=== PATIENT | female | born 1960 | race Caucasian/White ===

== ENCOUNTER 2018-09-30 10:39 | Outpatient (CLI) | payer BC ==
--- NOTE | 2018-09-30 13:43 | ULT ---
SOFT TISSUE ULTRASOUND: History: Area of concern in the right shoulder. Comparison: None. Technique: Targeted sonographic images of the left and right shoulder are performed. FINDINGS: There is a soft tissue echotexture mass, well circumscribed, in the region of concern measuring 1.9 x 0.7 x 2.7 cm. No similar finding on the contralateral side. IMPRESSION: Soft tissue echotexture mass noted in the region of concern in the right shoulder. Pre and post contr ast MRI is recommended. Code T POS: JOE
== END 2018-09-30 10:40 | disposition home or self-care (01) ==
LOC: BICULT 10:39
PROVIDERS: ATTEND Internal Medicine
DX: R22.31 Localized swelling, mass and lump, right upper limb (principal)
CPT/HCPCS: 76999

== ENCOUNTER 2019-06-27 07:42 | Outpatient (CLI) | payer BC ==
--- NOTE | 2019-06-27 08:24 | MMO ---
Bilateral MAMMO Bilat Screen [facility]. CLINICAL HISTORY: Patient is 59 years old and is seen for screening. The patient has no family history of breast cancer. The patient has no personal history of cancer. VIEWS: The views performed were: bilateral craniocaudal with tomosynthesis and bilateral mediolateral oblique with tomosynthesis. FILMS COMPARED: The present examination has been compared to prior imaging studies performed at [facility] on 06/15/2015, 06/20/2016, 06/22/2017 and 06/24/2018. MAMMOGRAM FINDINGS: The breasts are heterogeneously dense, which could obscure a lesion on mammography. There is a single stable benign appearing calcification seen in the right breast. There are no suspicious masses, suspicious calcifications, or new areas of architectural distortion. IMPRESSION: THERE IS NO MAMMOGRAPHIC EVIDENCE OF MALIGNANCY. A ROUTINE FOLLOW-UP MAMMOGRAM IN 1 YEAR IS RECOMMENDED. THE RESULTS OF THIS EXAM WERE SENT TO THE PATIENT. ACR BI-RADS Category 2 - Benign finding MAMMOGRAPHY NOTE: 1. A negative mammogram report should not delay a biopsy if a dominant of clinically suspicious mass is present. 2. Approximately 10% to 15% of breast cancers are not detected by mammography. 3. Adenosis and dense breasts may obscure an underlying neoplasm. Reported by: CORA RODRIGUEZ MD Electonically Signed: [id number]
== END 2019-06-27 07:43 | disposition home or self-care (01) ==
LOC: BICMAMMO 07:42
PROVIDERS: ATTEND Obstetrics & Gynecology
DX: Z12.31 Encounter for screening mammogram for malignant neoplasm of breast (principal)
CPT/HCPCS: 77063; 77067

== ENCOUNTER 2019-12-26 12:54 | Outpatient (CLI) | payer BC ==
--- NOTE | 2019-12-26 14:23 | CT ---
Exam: CT IAC/temporal bones HISTORY: Temporal sclerosis. Bilateral hearing loss for many years. Right worse than left. COMPARISON: None. TECHNIQUE: CT of IACs and temporal bones performed in the axial plane. Coronal reformatted images are submitted for dictation FINDINGS: Brain parenchyma: No masses. No midline shift. Brain volume is age-appropriate. Orbits: Bilateral ocular lenses are appropriately located. Both globes are intact. Preserved retrobul bar fat. Symmetric attenuation of the visualized optic nerves and ocular rectus muscles. Adequate aeration of visualized paranasal sinuses. Minimal left maxillary sinus mucosal disease along with a small polyp. Minimal opacification of the left ethmoid air cells. Right IAC/temporal bone: The internal auditory canal, cochlea, vestibule and semicircular canals have an appropriate appearance and configuration. There is adequate aeration of the middle ear. The manubrium of the malleus has a somewhat irregular appearance. The body of the incus has an abnormal a ppearance. The long arm of the incus and stapedial footplate are unremarkable. Tegmen tympani and tegmen mastoideum appear to be preserved. Adequate aeration of the mastoid air cells. No abnormal hyp odensities in Prussak's space. Scutum is sharp. There does appear to be calcification and retraction of the tympanic membrane. Small defect in the ty mpanic membrane is also noted. External auditory canal is patent. Left IAC/temporal bone: The internal auditory canal, cochlea, vestibule and semicircular canals have an appropriate appearance and configuration. Adequate aeration of the middle ear. Ossicular chain is intact. Stapedial footplate is appropriately located. Tegmen tympani and tegmen mastoideum are pre served. Adequate aeration of mastoid air cells. No abnormal hypodensities in Prussak's space. Scutum is sharp. External auditory canal is patent. Tympanic membrane is slightly thickened and retra cted. Possible associated tympanic membrane calcification. IMPRESSION: 1. Thickening of the right tympanic membrane with associated calcification. Calcification appears to be contiguous with the manubrium of the malleus as well as contiguous with the incus. 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 2. There appears to be a defect in the right tympanic membrane. 3. Mild thickening and minimal calcification left tympanic membrane.
== END 2019-12-26 12:55 | disposition home or self-care (01) ==
LOC: BICCT 12:54
PROVIDERS: ATTEND Otolaryngology Plastic Surgery within the Head & Neck
DX: G93.81 Temporal sclerosis (principal); H73.893 Other specified disorders of tympanic membrane, bilateral
CPT/HCPCS: 70480

== ENCOUNTER 2020-06-28 08:00 | Outpatient (CLI) | payer BC ==
--- NOTE | 2020-06-28 08:50 | MMO ---
Bilateral MAMMO Bilat Screen [facility]. CLINICAL HISTORY: Patient is 60 years old and is seen for screening. The patient has no family history of breast cancer. The patient has no personal history of cancer. VIEWS: The views performed were: bilateral craniocaudal with tomosynthesis and bilateral mediolateral oblique with tomosynthesis. FILMS COMPARED: The present examination has been compared to prior imaging studies performed at [facility] on 06/20/2016, 06/22/2017, 06/24/2018 and 06/27/2019. This study has been interpreted with the assistance of computer-aided detection. MAMMOGRAM FINDINGS: The breasts are heterogeneously dense, which could obscure a lesion on mammography. There are no suspicious masses, suspicious calcifications, or new areas of architectural distortion. IMPRESSION: THERE IS NO MAMMOGRAPHIC EVIDENCE OF MALIGNANCY. A ROUTINE FOLLOW-UP MAMMOGRAM IN 1 YEAR IS RECOMMENDED. THE RESULTS OF THIS EXAM WERE SENT TO THE PATIENT. ACR BI-RADS Category 1 - Negative MAMMOGRAPHY NOTE: 1. A negative mammogram report should not delay a biopsy if a dominant of clinically suspicious mass is present. 2. Approximately 10% to 15% of breast cancers are not detected by mammography. 3. Adenosis and dense breasts may obscure an underlying neoplasm. Reported by: EDUARDO GARCIA MD Electonically Signed: [id number]
== END 2020-06-28 08:01 | disposition home or self-care (01) ==
LOC: BICMAMMO 08:00
PROVIDERS: ATTEND Obstetrics & Gynecology
DX: Z12.31 Encounter for screening mammogram for malignant neoplasm of breast (principal)
CPT/HCPCS: 77063; 77067

== ENCOUNTER 2021-06-29 07:46 | Outpatient (CLI) | payer OTHER | END 2021-06-29 07:47 | disposition home or self-care (01) | LOC: BICMAMMO 07:46 | PROVIDERS: ATTEND Obstetrics & Gynecology | DX: Z12.31 Encounter for screening mammogram for malignant neoplasm of breast (principal) | CPT/HCPCS: 77063; 77067 ==

== ENCOUNTER 2022-06-06 16:13 | Emergency (ER) | payer OTHER, BC ==
[2022-06-06] MEDS ORDERED: Fentanyl 100 MCG/2 ML VIAL ONE (17:02)
== END 2022-06-06 18:28 | disposition home or self-care (01) ==
LOC: ERS 16:13
DX: S00.83XA Contusion of other part of head, initial encounter (principal); S40.011A Contusion of right shoulder, initial encounter; M54.2 Cervicalgia; K21.9 Gastro-esophageal reflux disease without esophagitis; E78.00 Pure hypercholesterolemia, unspecified; V43.52XA Car driver injured in collision with other type car in traffic accident, initial encounter; W22.11XA Striking against or struck by driver side automobile airbag, initial encounter; Z79.899 Other long term (current) drug therapy
CPT/HCPCS: 70450; 71045; 72125; 96374; J3010

== ENCOUNTER 2022-06-30 08:33 | Outpatient (CLI) | payer BC | END 2022-06-30 08:34 | disposition home or self-care (01) | LOC: BICMAMMO 08:33 | PROVIDERS: ATTEND Obstetrics & Gynecology | DX: Z12.31 Encounter for screening mammogram for malignant neoplasm of breast (principal) | CPT/HCPCS: 77063; 77067 ==

== ENCOUNTER 2023-07-23 08:25 | Outpatient (CLI) | payer BC | END 2023-07-23 08:26 | disposition home or self-care (01) | LOC: BICMAMMO 08:25 | PROVIDERS: ATTEND Obstetrics & Gynecology | DX: Z12.31 Encounter for screening mammogram for malignant neoplasm of breast (principal) | CPT/HCPCS: 77063; 77067 ==

== ENCOUNTER 2024-06-30 12:44 | Outpatient (CLI) | payer BC | END 2024-06-30 12:45 | disposition home or self-care (01) | LOC: BICRAD 12:44 | PROVIDERS: ATTEND Podiatrist | DX: M79.674 Pain in right toe(s) (principal); M79.675 Pain in left toe(s) ==

== ENCOUNTER 2024-07-24 07:55 | Outpatient (CLI) | payer BC | END 2024-07-24 07:56 | disposition home or self-care (01) | LOC: BICMAMMO 07:55 | PROVIDERS: ATTEND Obstetrics & Gynecology | DX: Z12.31 Encounter for screening mammogram for malignant neoplasm of breast (principal) | CPT/HCPCS: 77063; 77067 ==